=== PATIENT | male | born 1945 | race Caucasian/White ===

== ENCOUNTER 2017-04-19 08:17 | Emergency (ER) | payer MEDICARE, OTHER ==
--- NOTE | ~2017-04-19 | EKG ---
PATIENT: YANY BURRELL UNIT #: [id number] Ventricular Rate: 57 BPM Atrial Rate: 57 BPM P-R Interval: 230 ms QRS Duration: 104 ms Q-T Interval: 518 ms QTC Calculation(Bezet): 504 ms P [place]: 26 degrees Calculated R [place]: -11 degrees Calculated T [place]: 0 degrees Diagnosis Line: Sinus bradycardia with 1st degree A-V block Diagnosis Line: Prolonged QT Diagnosis Line: Abnormal ECG Diagnosis Line: When compared with ECG of 02-MAR-2016 18:28, Diagnosis Line: Left bundle branch block is no longer Present Diagnosis Line: Confirmed by HARVEY DAUGHERTY MD ([id number]) on 04/20/2017 Diagnosis Line: 5:54:08 PM INTERPRETING MD: DAT RANKIN
[~2017-04-19 08:17] MED LIST: ALLOPURINOL300 MG PO; ALPRAZOLAM PO; AMITRIPTYLINE H25 MG PO; AMLODIPINE BESY10 MG PO; APRESOLINE PO; ATENOLOL50 MG PO; AUGMENTIN PO; BUMEX2 MG PO; CARAFATE1 G PO; CORDARONE200 M1 PO; ELIQUIS5 MG PO; FLEXERIL10 M1 PO; FLEXERIL10 MG PO; GABAPENTIN300 M2 PO; HYDROCODON-ACE1 EACH PO; K-DUR20 ME1 PO; LASIX PO; LASIX20 MG PO; LEVOTHROID25 MCG PO; LEVOTHYROXINE25 MCG PO; METOPROLOL TAR25 MG PO; NEURONTIN300 MG PO; NIFEDIPINE 10 MG PO; NORVASC10 MG PO; PRAVACHOL20 MG PO; RENVELA800 MG PO; SODIUM BICARBO650 MG PO; TRAMADOL HCL50 M1 PO
[2017-04-19 09:16] LABS: EOSINOPHIL# 0.1 X10e3 (0-0.7); EOSINOPHIL% 3.6 % (0.0-7.0); HEMATOCRIT 34.7 % (38.0-50.0); HEMOGLOBIN 11.5 gm/dL (13.0-16.0); LYMPHOCYTE# 1.5 X10e3 (1.0-3.5); LYMPHOCYTE% 48.9 % (17.0-45.0); MEAN CELL VOLUME 96.4 FL (83-96); MEAN CORPUSCULAR HEMOGLOBIN 31.9 PG (28-34); MEAN CORPUSCULAR HGB CONC 33.1 g/dL (30-36); MEAN PLATELET VOLUME 8.7 FL (6.5-11.5); MONOCYTE# 0.4 X10e3 (0-1.0); MONOCYTE% 12.1 % (3.0-12.0); NEUTROPHIL# 1.1 X10e3 (1.5-7.1); NEUTROPHIL% 34.4 % (40-75); PLATELET COUNT 130 X10e3 (140-420); RED CELL DISTRIBUTION WIDTH 16.6 % (11.0-15.5); WHITE BLOOD COUNT 3.1 X10e3 (4.0-10.5)
[2017-04-19 09:17] LABS: DIFF IND NO
[2017-04-19 10:40] LABS: BUN/CREATININE RATIO 3.22; CALCIUM SERUM 8.1 mg/dL (8.4-10.2); CREATININE SERUM 6.2 mg/dL (0.6-1.4); GLOM FILT RATE Estimated 8.4 mL/min (>60); POTASSIUM 5.2 mmol/L (3.5-5.1)
== END 2017-04-19 11:30 | disposition home or self-care (01) ==
LOC: CED 08:17
PROVIDERS: Nurse Practitioner
DX: I13.0 Hypertensive heart and chronic kidney disease with heart failure and stage 1 through stage 4 chronic kidney disease, or unspecified chronic kidney disease (principal); N18.9 Chronic kidney disease, unspecified; I50.9 Heart failure, unspecified; E87.5 Hyperkalemia; Z99.2 Dependence on renal dialysis; Z88.8 Allergy status to other drugs, medicaments and biological substances
CPT/HCPCS: 36415; 80048; 82947; 85025; 93005; 99284